=== PATIENT | female | born 1955 | race Caucasian/White ===

== ENCOUNTER 2021-05-25 19:40 | Emergency (ER) | payer OTHER ==
[~2021-05-25] VITALS: Ht 157.5 cm; Wt 96.7 kg
[2021-05-25 19:57] VITALS: BP 149/69
--- NOTE | 2021-05-25 20:04 | NUR ---
PT TAKEN TO BED 01. GIVEN URINE CUP AND PLACED IN GOWN.
[2021-05-25] MEDS ORDERED: ONDANSETRON 4 MG ODT PO ONE (20:30)
--- NOTE | 2021-05-25 20:50 | NUR ---
URINE GIVEN TO MAINTENANCE DEPARTMENT MANAGER
--- NOTE | 2021-05-25 21:00 | NUR ---
65 Y/O FEMALE BIB SELF, C/O ABDOMINAL PAIN X1 DAY. PATIENT PRESENTS TO ED WITH ABDOMINAL BLOATING, NAUSEA, AND LOSS OF APETITE. PT STATES SHE ATE BREAKFAST NORMALLY IN THE MORNING THE BEGAN TO BLOAT THROUGHT THE DAY; SHE IS ABLE TO DEFICATE NORMALLY DURING THE DAY X2 BUT WAS UNABLE TO EAT DINNER BECAUSE OF THE BLOATING. DENIES V/D; SKIN IS PINK/WARM/DRY; AAOX4 WITH EVEN AND STEADY GAIT; LUNGS CLEAR BL; HR EVEN AND REGULAR; PT DENIES ANY FEVER, CP, SOB, OR COUGH AT THIS TIME; PATIENT STATES PAIN OF 5/10 AT THIS TIME; VSS; PATIENT POSITIONED FOR COMFORT; HOB ELEVATED; BEDRAILS UP X2; BED DOWN. ER MD MADE AWARE OF PT STATUS. HX: DM TYPE 2, HTN NKDA MEDS: TRULICITY, INSULIN, METFORMIN, BASAGLAR
[2021-05-25 21:13] LABS: BASOPHILS # (AUTO) 0.1 K/uL (0.00-0.22); BASOPHILS % (AUTO) 0.6 % (0.0-2.0); EOSINOPHILS # (AUTO) 0.1 K/uL (0-0.4); EOSINOPHILS % (AUTO) 0.8 % (0.0-4.0); HEMATOCRIT 37.8 % (36-48); HEMOGLOBIN 11.9 g/dL (12.0-16.0); LYMPHOCYTES # (AUTO) 0.6 K/uL (2.5-16.5); LYMPHOCYTES % (AUTO) 4.9 % (20.5-51.1); MEAN CORPUSCULAR HEMOGLOBIN 27 pg (27-31); MEAN CORPUSCULAR HGB CONC 31 g/dL (33-37); MEAN CORPUSCULAR VOLUME 84.7 fL (80-94); MONOCYTES # (AUTO) 0.3 K/uL (0.8-1.0); MONOCYTES % (AUTO) 2.5 % (1.7-9.3); NEUTROPHILS # (AUTO) 11.4 K/uL (1.8-7.7); NEUTROPHILS % (AUTO) 91.2 % (42.2-75.2); PLATELET COUNT (AUTO) 224 K/uL (140-450); RED BLOOD CELL COUNT(AUTO) 4.46 MIL/uL (4.20-5.40); WHITE BLOOD COUNT (AUTO) 12.5 K/uL (4.8-10.8)
[2021-05-25 21:33] LABS: ALBUMIN 3.4 g/dL (3.4-5.0); ANION GAP 14.2 (8-16); CARBON DIOXIDE 26.4 mmol/L (21-32); POTASSIUM 4.6 mmol/L (3.5-5.1); TOTAL BILIRUBIN 0.4 mg/dL (0.0-1.0)
[2021-05-25] MEDS ORDERED: NACL 0.9% 1,000 ML IV ONE ×2 (21:49→21:50)
[2021-05-25] MEDS ORDERED: IBUP-2213 PO (23:08)
[2021-05-25] MEDS ORDERED: KETOROLAC 30 MG/ML VIAL IVP ONE (23:10)
[2021-05-25 23:49] VITALS: BP 146/67
--- NOTE | 2021-05-25 23:49 | NUR ---
Patient discharged with v/s stable. Written and verbal after care instructions given and explained. Patient alert, oriented and verbalized understanding of instructions. Ambulatory with steady gait. All questions addressed prior to discharge. ID band removed. Patient advised to follow up with PMD. Rx of Ibuprofen given. Patient educated on indication of medication including possible reaction and side effects. Opportunity to ask questions provided and answered. VSS, A/OX4, AMBULATORY, UNALBORED BREATHING, AND CALM DEMEANOR.
[2021-05-26 00:02] LABS: APPEARANCE,URINE CLEAR (CLEAR); BILIRUBIN,URINE NEGATIVE (NEGATIVE); BLOOD, URINE NEGATIVE (NEGATIVE); COLOR,URINE YELLOW (YELLOW); LEUKOCYTE ESTERASE ,URINE NEGATIVE (NEGATIVE); NITRITE, URINE NEGATIVE (NEGATIVE); PH,URINE 5.5 (5.0-9.0); UGLUCOSE 3+ (NEGATIVE)
[2021-05-26 00:22] LABS: RBC,URINE NONE SEEN /HPF (0-5); WBC,URINE 0-5 /HPF (0-5); YEAST,URINE Few /HPF (None Seen)
--- NOTE | 2021-05-27 08:48 | NUR ---
LATE ENTRY- IV NORMAL SALINE DISCONTINUED AT 2349.
== END 2021-05-25 23:49 | disposition home or self-care (01) ==
LOC: MED 19:40
DX: R10.13 Epigastric pain (principal); E11.65 Type 2 diabetes mellitus with hyperglycemia; R11.0 Nausea; K21.9 Gastro-esophageal reflux disease without esophagitis; Z90.49 Acquired absence of other specified parts of digestive tract; Z98.890 Other specified postprocedural states
CPT/HCPCS: 36415; 74177; 80053; 81001; 83690; 85025; 87086; 96361; 96374; 99285; J1885; J7030; Q0162; Q9967

== ENCOUNTER 2021-07-11 06:00 | Emergency (ER) | payer OTHER ==
[~2021-07-11] VITALS: Ht 157.5 cm; Wt 97.1 kg
[~2021-07-11 06:00] MED LIST: IBUP-2213 PO
[2021-07-11 06:06] VITALS: BP 160/76
--- NOTE | 2021-07-11 06:10 | NUR ---
PT AMBULATED TO BED #4
--- NOTE | 2021-07-11 06:45 | NUR ---
66 y/o F BIB SELF FOR HAND/FOOT PEELING X 1 MONTH AND VAGINAL PAIN X1 NIGHT. PT STATES SHE WAS PRESCRIBED CREAM FOR HER HANDS TO STOP THE PEELING. SHE ALSO PRESCIBED MONISTAT FOR PRIOR VAGINAL ITCHING. PT STATES LAST NIGHT SHE WAS LAYING IN BED AND SHE FELT PAIN AND ORGASMS THAT WOULDNT STOP. PT SAYS IT FEELS LIKE THERE IS SOMETHING IN THERE. PT STATES SHE IS UNDER ALOT OF STRESS. DENIES N/V/D; SKIN IS PINK/WARM/DRY; AAOX4 WITH EVEN AND STEADY GAIT; PT DENIES ANY FEVER, CP, SOB, OR COUGH AT THIS TIME; PATIENT STATES PAIN OF 3/10 AT THIS TIME; VSS;
[2021-07-11] MEDS ORDERED: TRAM50TA3 PO (07:06)
--- NOTE | 2021-07-11 07:13 | NUR ---
PT LAYING DOWN. BED LOWERED TO LOWEST POSTION.
[2021-07-11 07:20] LABS: BASOPHILS # (AUTO) 0.1 K/uL (0.00-0.22); BASOPHILS % (AUTO) 0.6 % (0.0-2.0); EOSINOPHILS # (AUTO) 0.5 K/uL (0-0.4); EOSINOPHILS % (AUTO) 4.3 % (0.0-4.0); HEMATOCRIT 36.9 % (36-48); HEMOGLOBIN 11.6 g/dL (12.0-16.0); LYMPHOCYTES # (AUTO) 2.7 K/uL (2.5-16.5); LYMPHOCYTES % (AUTO) 24.5 % (20.5-51.1); MEAN CORPUSCULAR HEMOGLOBIN 26 pg (27-31); MEAN CORPUSCULAR HGB CONC 32 g/dL (33-37); MEAN CORPUSCULAR VOLUME 83.2 fL (80-94); MONOCYTES # (AUTO) 0.7 K/uL (0.8-1.0); MONOCYTES % (AUTO) 6.6 % (1.7-9.3); PLATELET COUNT (AUTO) 252 K/uL (140-450); RED BLOOD CELL COUNT(AUTO) 4.43 MIL/uL (4.20-5.40); RED CELL DISTRIBUTION WIDTH 17.1 % (11.6-13.7)
--- NOTE | 2021-07-11 07:22 | NUR ---
Pt report given to TATIANA. Transfer of care at this time.
[2021-07-11 07:39] LABS: APPEARANCE,URINE SL CLOUDY (CLEAR); BILIRUBIN,URINE NEGATIVE (NEGATIVE); BLOOD, URINE TRACE-I (NEGATIVE); COLOR,URINE YELLOW (YELLOW); LEUKOCYTE ESTERASE ,URINE NEGATIVE (NEGATIVE); NITRITE, URINE NEGATIVE (NEGATIVE); PH,URINE 5.5 (5.0-9.0); UGLUCOSE 3+ (NEGATIVE)
[2021-07-11 07:53] LABS: ALBUMIN 3.7 g/dL (3.4-5.0); CARBON DIOXIDE 28.7 mmol/L (21-32); CREATININE 0.8 mg/dL (0.6-1.3); POTASSIUM 3.7 mmol/L (3.5-5.1); TOTAL BILIRUBIN 0.3 mg/dL (0.0-1.0)
[2021-07-11 08:22] LABS: RBC,URINE 0-5 /HPF (0-5); WBC,URINE 0-5 /HPF (0-5)
[2021-07-11 08:23] LABS: CALCIUM OXALATE CRYSTALS,UR None Seen /HPF (None Seen); COARSE GRANULAR CASTS,URINE None Seen /LPF (None Seen); FINE GRANULAR CASTS,URINE None Seen /LPF (None Seen); HYALINE CASTS, URINE None Seen /LPF (None Seen); OTHER CASTS, URINE None Seen /LPF (None Seen); OTHER CRYSTALS,URINE None Seen /HPF (None Seen); RED BLOOD CELL CASTS,URINE None Seen /LPF (None Seen); TRICHOMONAS,URINE None Seen /HPF (None Seen); TRIPLE PHOSPHATE CRYSTAL,UR None Seen /HPF (None Seen); URIC ACID CRYSTALS,URINE None Seen /HPF (None Seen); URINE AMORPHOUS URATE None Seen /HPF (None Seen); WAXY CASTS,URINE None Seen /LPF (None Seen); YEAST,URINE None Seen /HPF (None Seen)
[2021-07-11 08:28] VITALS: BP 160/76
== END 2021-07-11 08:25 | disposition home or self-care (01) ==
LOC: MED 06:00
DX: R10.2 Pelvic and perineal pain (principal); R23.4 Changes in skin texture; E11.9 Type 2 diabetes mellitus without complications; K21.9 Gastro-esophageal reflux disease without esophagitis; I10 Essential (primary) hypertension; Z79.4 Long term (current) use of insulin; Z90.49 Acquired absence of other specified parts of digestive tract; Z98.890 Other specified postprocedural states; Z79.899 Other long term (current) drug therapy
CPT/HCPCS: 36415; 80053; 81001; 85025; 99283